=== PATIENT | male | born 1980 | race African-American/Black ===

== ENCOUNTER 2017-10-05 14:58 | Emergency (ER) | payer OTHER ==
--- NOTE | 2017-10-05 15:41 | RAD ---
RIGHT HAND 3 VIEWS: HISTORY: Laceration. Medical clearance. COMPARISON: None. FINDINGS: Old 5th metacarpal fracture. No acute fractures. Joint spaces are preserved. No radiopaque foreign body. IMPRESSION: No radiopaque foreign bodies. POS: [facility] [place]
[2017-10-05] MEDS ORDERED: Lidocaine 1% (PF) 30 ML VIAL ONE (15:55)
[2017-10-05] MEDS ORDERED: Triple Antibiotic Oint 1 GM Packet ONE (16:57)
== END 2017-10-05 17:08 | disposition home or self-care (01) ==
LOC: ERS 14:58
DX: S61.411A Laceration without foreign body of right hand, initial encounter (principal); I10 Essential (primary) hypertension; F17.210 Nicotine dependence, cigarettes, uncomplicated; W22.8XXA Striking against or struck by other objects, initial encounter
CPT/HCPCS: 12001; 99406; J2001

== ENCOUNTER 2018-02-19 17:12 | Emergency (ER) | payer SELFPAY ==
--- NOTE | 2018-02-19 18:19 | RAD ---
RIGHT KNEE FOUR VIEWS: 02/19/18 HISTORY: Injury, right knee pain. FINDINGS/IMPRESSION: No acute fracture or dislocation is seen. There is fullness in the suprapatellar pouch suspicious for joint effusion. POS: [facility]
== END 2018-02-19 19:30 | disposition home or self-care (01) ==
LOC: ERS 17:12
DX: S83.91XA Sprain of unspecified site of right knee, initial encounter (principal); I10 Essential (primary) hypertension; V49.49XA Driver injured in collision with other motor vehicles in traffic accident, initial encounter

== ENCOUNTER 2018-04-15 07:34 | Observation (INO) | payer SELFPAY ==
[2018-04-15 08:50] LABS: #Lymphocytes 0.5 thou/uL (1.20-3.40); #Monocytes 0.4 thou/uL (0.11-0.59); #Neutrophils 11.1 thou/uL (1.40-6.50); %Eosinophils 0.1 % (0.0-10.0); %Lymphocytes 4.4 % (21.0-51.0); %Monocytes 3.5 % (0.0-10.0); %Neutrophils 91.9 % (42.0-75.0); Hemoglobin 17.1 g/dL (14.0-18.0); Mean Corpuscular HGB CONC 33.8 g/dL (32.0-36.0); Mean Corpuscular Volume 91.7 fL (78.0-98.0); Platelet Count 197 thou/uL (130-400); RBC Distribution Width 11.3 % (11.5-14.5); Red Blood Cell (RBC) Count 5.51 mill/uL (4.70-6.10); White Blood Cell (WBC) Count 12.1 thou/uL (4.8-10.8)
[2018-04-15] MEDS ORDERED: Ondansetron PF 4 MG/2 ML Vial ONE (08:59)
[2018-04-15] MEDS ORDERED: cloNIDine 0.1 MG TAB ONE (08:59)
[2018-04-15] MEDS ORDERED: Ketorolac Tromethamine 30 MG/ML VIAL ONE (08:59)
[2018-04-15 09:09] LABS: ALT (SGPT) 31 U/L (8-55); AST (SGOT) 33 U/L (5-34); Albumin 4.6 g/dL (3.5-5.0); Alkaline Phosphatase 76 U/L (40-150); Anion Gap 14 mmol/L (10-20); BUN (Urea Nitrogen) 11 mg/dL (8.9-20.6); Bilirubin, Total 0.9 mg/dL (0.2-1.2); Calc. Creatinine Clearance 0 mL/min (70-130); Calcium 9.9 mg/dL (7.8-10.44); Carbon Dioxide 28 mmol/L (22-29); Chloride 99 mmol/L (98-107); Estimated GFR-MDRD 59; Globulin 3.9 g/dL (2.4-3.5); Glucose 105 mg/dL (70-105); Lipase 11 U/L (8-78); Potassium 3.9 mmol/L (3.5-5.1); Protein, Total 8.5 g/dL (6.0-8.3); Sodium 137 mmol/L (136-145)
[2018-04-15 09:19] LABS: Clarity TURBID (Clear)
[2018-04-15 09:21] LABS: Bacteria/HPF Rare-Few HPF (None Seen); Pathc Cast-AUWi Flag 1.75 (0-2.49)
[2018-04-15] MEDS ORDERED: Metoclopramide HCl 10 MG TAB ONE (09:29)
[2018-04-15 09:34] LABS: Leukocyte Unable to Interpret (Negative); Nitrite Unable to Interpret (Negative); Protein, Urine (Dipstick) Unable to Interpret mg/dL (Neg-Trace)
[2018-04-15 09:35] LABS: Bilirubin Unable to Interpret (Negative); Blood, Urine Unable to Interpret (Negative); Glucose, Urine (Dipstick) Unable to Interpret mg/dL (Negative); Urobilinogen UNABLE TO INTERPRET mg/dL (0.2-1.0)
[2018-04-15 09:44] LABS: Specific Gravity, Urine 1.037 (1.002-1.036); pH, Urine 6.1 (5.0-9.0)
[2018-04-15 09:45] LABS: RBC/HPF 0-3 HPF (0-3)
[2018-04-15 09:46] LABS: Hyaline Casts/LPF 0-3 HYALINE CAST LPF (0-3 Hyaline)
[2018-04-15] MEDS ORDERED: Acetaminophen 500 MG TAB ONE (09:47)
[2018-04-15] MEDS ORDERED: Ibuprofen 200 MG TAB ONE (09:47)
[2018-04-15] MEDS ORDERED: Nitroglycerin 0.4 MG TAB (25 Tab Bottle) ONE (09:47)
[2018-04-15] MEDS ORDERED: Nitroglycerin 2% Ointment 1 INCH/1 GM Packet ONE (09:47)
--- NOTE | 2018-04-15 09:58 | ULT ---
SCROTAL SONOGRAM WITH DUPLEX EVALUATION: History: Testicular pain and swelling. FINDINGS: Right testicle is 4.2 cm and left is 4.5 cm. Each has a normal sonographic appearance with good color and spectral doppler flow. A small amount of fluid within the right scrotum. IMPRESSION: Small right hydrocele. No direct evidence of testicular mass or torsion. POS: [facility]
[2018-04-15 10:32] LABS: Lactic Acid 1.7 mmol/L (0.5-2.2)
[2018-04-15] MEDS ORDERED: Azithromycin 250 MG TAB ONE (11:06)
[2018-04-15] MEDS ORDERED: Lidocaine 2% PF 5 ML VIAL ONE (11:06)
[2018-04-15] MEDS ORDERED: cefTRIAXone\\ROCEPHIN 250 MG VIAL ONE (11:06)
[2018-04-15] MEDS ORDERED: HYDROcodone/Acetaminophen 5/325 mg Tablet PO PRN (12:53)
[2018-04-15] MEDS ORDERED: Ondansetron ODT 4 MG TAB PO PRN (12:53)
[2018-04-15] MEDS ORDERED: Benzonatate 100 MG CAP PO PRN (13:00)
[2018-04-15] MEDS ORDERED: Nicotine 14 MG PATCH TD SCH (13:00)
--- NOTE | 2018-04-15 14:09 | RAD ---
TWO VIEWS CHEST: Comparison: None. History: Low back pain and chest congestion. Cough. FINDINGS: Two views of the chest show normal sized cardiomediastinal silhouette. There is no evidence of consol idation, mass, or pleural effusion. The bones are unremarkable. IMPRESSION: No evidence of acute cardiopulmonary disease. POS: [facility]
[2018-04-15 15:30] VITALS: BMI 34.2
[2018-04-15] MEDS: Sodium Chloride 0.9% 1,000 ML IV SCH (16:05)
--- NOTE | 2018-04-15 16:26 | ULT ---
BILATERAL RENAL ULTRASOUND 04/15/18 COMPARISON: None. HISTORY: Elevated creatinine. Renal failure. TECHNIQUE: Multiplanar blackwell scale and color doppler images were obtained in a renal ultrasound. FINDINGS: The kidneys are normal in echogenicity without hydronephrosis or calculi measuring 10.2 and 10.6 cm i n length on the right and left, respectively. Limited visualization of the urinary bladder is unremar kable. The prostate is enlarged. IMPRESSION: 1. Unremarkable renal ultrasound. 2. Enlarged prostate. POS: [facility]
[2018-04-15] MEDS: Acetaminophen 325 MG TAB PO PRN (19:50)
[2018-04-15] MEDS: Metoclopramide HCl 10 MG TAB PO SCH (19:51)
[2018-04-15] MEDS: Famotidine 20 MG TAB PO SCH (19:51)
[2018-04-15] MEDS ORDERED: Amlodipine 5 MG TAB PO SCH (21:00)
[2018-04-16] MEDS: hydrALAZINE 20 MG/ML VIAL SLOW IVP PRN ×2 (00:55→07:52)
[2018-04-16] MEDS: Acetaminophen 325 MG TAB PO PRN ×2 (00:56→07:52)
[2018-04-16] MEDS: Sodium Chloride 0.9% 1,000 ML IV SCH ×2 (00:56→06:31)
[2018-04-16 05:00] LABS: #Lymphocytes 1.2 thou/uL (1.20-3.40); #Monocytes 0.6 thou/uL (0.11-0.59); #Neutrophils 4.4 thou/uL (1.40-6.50); %Basophils 0.1 % (0.0-1.0); %Eosinophils 0.2 % (0.0-10.0); %Lymphocytes 19.5 % (21.0-51.0); %Monocytes 9.8 % (0.0-10.0); %Neutrophils 70.5 % (42.0-75.0); Hemoglobin 15.2 g/dL (14.0-18.0); Mean Corpuscular HGB CONC 35.2 g/dL (32.0-36.0); Mean Corpuscular Hemoglobin 32.1 pg (27.0-31.0); Mean Corpuscular Volume 91.2 fL (78.0-98.0); Mean Platelet Volume 8.6 fL (7.4-10.4); Platelet Count 145 thou/uL (130-400); RBC Distribution Width 11.3 % (11.5-14.5); Red Blood Cell (RBC) Count 4.74 mill/uL (4.70-6.10); White Blood Cell (WBC) Count 6.3 thou/uL (4.8-10.8)
[2018-04-16 05:17] LABS: ALT (SGPT) 44 U/L (8-55); AST (SGOT) 46 U/L (5-34); Albumin 3.5 g/dL (3.5-5.0); Alkaline Phosphatase 61 U/L (40-150); Anion Gap 10 mmol/L (10-20); BUN (Urea Nitrogen) 12 mg/dL (8.9-20.6); Bilirubin, Total 0.8 mg/dL (0.2-1.2); Calc. Creatinine Clearance 119 mL/min (70-130); Calcium 8.5 mg/dL (7.8-10.44); Carbon Dioxide 25 mmol/L (22-29); Chloride 106 mmol/L (98-107); Estimated GFR-MDRD 74; Globulin 3.1 g/dL (2.4-3.5); Glucose 92 mg/dL (70-105); Potassium 3.9 mmol/L (3.5-5.1); Protein, Total 6.6 g/dL (6.0-8.3); Sodium 137 mmol/L (136-145)
--- NOTE | 2018-04-16 06:43 | HP ---
PRIMARY CARE PHYSICIAN: None. REASON FOR ADMISSION: Hypertensive urgency HISTORY OF PRESENT ILLNESS & ROS: This is a 37-year-old man admitted with hypertensive urgency, BP in the ED ranging from 171-243/101-156. He initially presented complaining of fever, body aches and chills. Has been generally unwell for the last week with increased cough, now productive for green sputum (known smoker with a chronic cough. Reports continuous hiccups x 3 days. Immediately relived after given Reglan in ED. One episode of vomiting this morning as well as dysuria with orange colored urine. Denies any bleeding or discharge. Reported to have testicular pain on exam in ED, ultrasound done showed a right hydrocele, otherwise normal. Known history of hypertension in the past while in [facility], controlled with HCTZ. Once released he had no further follow-up. CONSTITUTIONAL: Reports chills and fever. EYES: Negative ENT: Hiccups, continuous for 3 days. CARDIOVASCULAR: Negative. No chest pain or palpitations. RESPIRATORY: No shortness of breath. Reports increased cough, +green sputum. GI: No nausea, vomiting or change in stools. : Reports dysuria this morning. No discharge or bleeding. MUSCULOSKELETAL: Generalized bodyaches SKIN: Negative NEUROLOGIC: Negative ENDOCRINE: Negative. HEMO/LYMPHATIC: Normal PSYCHIATRIC: Negative, Normal affect, AOx3 PAST MEDICAL HISTORY: Hypertension, treated previously while he was in [facility] with hydrochlorothiazide. Dose unknown. PAST SURGICAL HISTORY: None. SOCIAL HISTORY: Lives at home with partner and 6-month-old child. Denies any illicit drug use. Alcohol, on occasion. FAMILY HISTORY: His mother has a history of CAD. ALLERGIES: NO KNOWN DRUG ALLERGIES. CURRENT MEDICATIONS: None. PHYSICAL EXAMINATION: VITAL SIGNS: BP 182/75, HR 55, RR 19, O2 sat 97% RA HEENT: Normocephalic and atraumatic. Pupils equal, round, and reactive to light. Sclerae are anicteric. Ears unremarkable. Oropharynx is clear. No exudate or thrush. NECK: Supple without any lymphadenopathy. CHEST: No apparent respiratory distress. Chest movement symmetrical with equal expansion. Clear bilaterally. No wheezes or rales. CARDIOVASCULAR: Regular rate and rhythm. No audible murmurs. EXTREMITIES: Able to move all limbs. No lower limb edema or swelling. No calf tenderness. NEURO: The patient is alert and oriented x3. Speech normal. PSYCHIATRIC: Normal affect. Answering questions appropriately. LABORATORIES AND IMAGIN. White blood count 12.1, hemoglobin 17.1, hematocrit 50.5, and platelets 197. Sodium 137, potassium 3.9, chloride 99, carbon dioxide 28, creatinine 1.62, eGFR 59, glucose 105. LFTs within normal limits. Serum total protein 8.5 and albumin 3.9. 2. UA: color orange, clear, cloudy, turbid, pH is 6.1, specific gravity of 1.037. Greater than 50 white blood cells, wbc's 0 to 3, few to rare bacteria, 0 to 3 hyaline casts present. 3. Chest x-ray, appears unremarkable, final report pending. 4. Testicular ultrasound done, 04/15/2018, notable for small right hydrocele. No direct evidence of testicular mass or torsion. ASSESSMENT AND PLAN: 1. Hypertensive urgency. Continue to monitor BP. The patient admitted to telemetry for further monitoring of his blood pressure. We will start amlodipine 5 mg p.o. daily. 2. Elevated creatinine. IV hydration. Reviewed by Dr. Mathews of Urology. Awaiting bilateral renal ultrasound report. 4. Fever. Presumed STI due to testicular pain/dysuria. Given Rocephin and azithromycin in ED. Awaiting STI screening. 5. Cough. Chest x-ray completed, awaiting report. Reviewed by Dr. Wright who agrees appears unremarkable. Tesitzel Fofana prescribed to help with cough. Patient seen by Dr. Wright who feels patient appears well. Has advised no further antibiotics indicated. Patient likely to be discharged 04/16/2018. Job ID: [id number] [facility]
[2018-04-16] MEDS: Famotidine 20 MG TAB PO SCH (07:52)
[2018-04-16] MEDS: Metoclopramide HCl 10 MG TAB PO SCH (07:52)
[2018-04-16] MEDS ORDERED: Amlodipine 5 MG TAB PO SCH (09:00)
[2018-04-16] MEDS ORDERED: cefTRIAXone\\ROCEPHIN 2 GM in Sodium Chloride 0.9% 100 ML IVPB SCH (09:00)
[2018-04-16 09:37] VITALS: BP 169/109; TEMP 98.9
[2018-04-16] MEDS ORDERED: Azithromycin 500 MG in Sodium Chloride 0.9% 250 ML 250 ML IVPB SCH (10:00)
--- NOTE | 2018-04-17 08:57 | DIS ---
DATE OF ADMISSION: 04/15/2018 DATE OF DISCHARGE: 04/16/2018 PRIMARY CARE PHYSICIAN: To be established. CONSULTING PHYSICIAN: Dr. Mathews of Urology. DISCHARGE DIAGNOSIS: 1. Hypertensive urgency 2. Elevated creatinine 3. Fever. 4. Hiccups. PROCEDURES: 1. Testicular ultrasound, 04/15/2018. Impression; small right hydrocele. No direct evidence of a testicular mass or torsion. 2. Chest x-ray, 04/15/2018. Impression; no evidence of acute cardiopulmonary disease. 3. Renal ultrasound, 04/15/2018. Impression; unremarkable renal ultrasound. Enlarged prostate noted. 4. 12-lead EKG done on 04/15/2018. Impression; normal sinus rhythm with a heart rate of 91. No ectopics, QTc 415. 5. Laboratory studies; white blood count 12.1 on 04/15/2018, improved to 6.2 on 04/16/2018. Creatinine initially 1.62, improved to 1.33 on 04/16/2018. Otherwise, laboratory studies unremarkable. 6. UA done on 04/15/2018. [place] in color with turbid appearance. 7. Urine culture. No growth at 24 hours per preliminary report. HOSPITAL COURSE: Mr. Jones was admitted on 04/15/2018 with hypertensive urgency. He had a blood pressure of 200/108 upon initial presentation to the ED with fever, chills and body aches. Aches attributed to continuous hiccups. Hiccups resolved immediately with Reglan given in ED and again during his stay. Given hydralazine in ED with some improvement in his BP noted. Labs on admission notable for elevated creatinine. He reports darkening of his urine early hours this morning. Due to dysuria and possible discharge on exam in the ED he was treated for STI. Given Azithromycin and Rocephin, also STI testing done. No further fevers during his stay. Reports feeling significantly better. Eating/drinking without difficulties. Darkened urine has resolved following IV hydration, with creatinine down to 1.33 from 1.62. No dysuria. During his hospital stay, his blood pressures ranged between 206 and 209 systolic over 119 and 122 diastolic. Notable slight improvement with Norvasc 5 mg PO daily. He remained asymptomatic without any complaints of headaches, dizziness or visual disturbances. Known to have hypertension in the past with previous blood pressure readings in this range. He was treated previously while in group home with hydrochlorothiazide; however, upon release, he ceased any treatment and had no further followup. At present he is without complaints and eager for discharge home today with plans to establish care with a primary care physician. He is also agreeable to continue antihypertensives. Norvasc increased to 5 mg b.i.d. starting today. At time of discharge, blood pressure is 169/109. Hiccups resumed but quickly responded to Reglan, therefore requesting for Rx to continue at home. ROS: CONSTITUTIONAL: No fevers, chills or sweats. HEENT: No headaches or dizziness. No vision changes. No rhinorrhea. No sore throat. Denies any neck pain. CARDIAC: No chest pain or palpitations. LUNGS: No sob, no wheezing. ABDOMEN: No abdominal pain. No n/v or bowel changes. MUSCULOSKELETAL: Unremarkable. PHYSICAL EXAM: VITAL SIGNS: T 98.9, HR 95, RR 16, BP 169/109, O2 sat 99% on RA HEENT: Normocephalic and atraumatic. PERRLA. Sclerae anicteric. Oropharynx clear. Neck supple without lymphadenopathy CARDIAC: RRR, no audible murmurs LUNGS: Clear bilaterally, no wheezes or ronchi. ABDOMEN: Soft, nontender, nondistended. Normal bowel sounds. EXTREMITIES: No clubbing, cyanosis or oedema. No lower leg pain or swelling. NEUROLOGIC: Alert and oriented x 3. Normal affect. ALLERGIES: NO KNOWN DRUG ALLERGIES. HOME MEDICATIONS: 1. New prescription given for Norvasc 5 mg p.o. b.i.d. 2. New prescription given for Reglan 10 mg before meals and at bedtime. (for hiccups) CONDITION AT TIME OF DISCHARGE: Stable. ACTIVITY: As tolerated. DIET: Heart healthy diet recommended. DISPOSITION: Discharged to home today. FOLLOWUP: Advised to establish care with a primary care physician within 1 to 2 weeks, which he is agreeable to. He will return if any new concerning or worsening symptoms as discussed. The patient's case was discussed with Dr. Wright who is in agreement with plan as described above. The patient is also happy with plans for discharge and treatment as describe above. Job ID: [id number] [facility]
--- NOTE | 2018-04-18 13:47 | EKG ---
Test Reason : Blood Pressure : / mmHG Vent. Rate : 091 BPM Atrial Rate : 091 BPM P-R Int : 192 ms QRS Dur : 090 ms QT Int : 338 ms P-R-T Axes : 061 023 012 degrees QTc Int : 415 ms Normal sinus rhythm Possible Left atrial enlargement Septal infarct , age undetermined Abnormal ECG Confirmed by YAA VALE DO ([id number]), rewrite editor DARNELL PÉREZ ([id number]) on 04/18/2018 1:47:32 PM Referred By: Confirmed By:YAA VALE DO
[2018-04-19 05:31] LABS: Chlamydia by PCR Inconclusive (NotDetected); GC by PCR Inconclusive (NotDetected)
== END 2018-04-16 10:50 | disposition home or self-care (01) ==
LOC: ERS 07:34 → 2SW 14:39
PROVIDERS: ADMIT Family Medicine; ATTEND Family Medicine
DX: I16.0 Hypertensive urgency (principal); R50.9 Fever, unspecified; R06.6 Hiccough; R79.89 Other specified abnormal findings of blood chemistry; N43.3 Hydrocele, unspecified; N40.0 Benign prostatic hyperplasia without lower urinary tract symptoms; Z79.899 Other long term (current) drug therapy
CPT/HCPCS: 36415; 71046; 76770; 76870; 80053; 81003; 81015; 83605; 83690; 85025; 87040; 87086; 87491; 87591; 90471; 90686; 93005; 93976; 96361; 96372; 96374; 96376; G0008; G0378; J0360; J0696; J1885; J2001; J2405

== ENCOUNTER 2020-04-15 06:04 | Emergency (ER) | payer SELFPAY ==
[2020-04-15] MEDS ORDERED: Ibuprofen 200 MG TAB ONE (06:44)
[2020-04-15 12:22] LABS: SARS-CoV-2 MS2 Positive; SARS-CoV-2 N Gene Negative; SARS-CoV-2 S Gene Negative; SARS-CoV-2 by NAA Not Detected (NotDetected); SARS-CoV-2 orf1ab Negative
== END 2020-04-15 07:15 | disposition home or self-care (01) ==
LOC: ERS 06:04
DX: R50.9 Fever, unspecified (principal); M79.10 Myalgia, unspecified site; I10 Essential (primary) hypertension; Z20.828 Contact with and (suspected) exposure to other viral communicable diseases
CPT/HCPCS: 87635; 99283; U0003

== ENCOUNTER 2023-09-29 22:09 | Emergency (ER) | payer SELFPAY ==
[2023-09-29 22:58] LABS: Bacteria/HPF None Seen HPF (None Seen); Bilirubin Negative (Negative); Blood, Urine Negative (Negative); CAUTI Indications for Culture Dysuria,urgency,freq; Clarity Clear (Clear); Glucose, Urine (Dipstick) Normal (Negative); Ketone, Urine Negative (Negative); Leukocyte 75 Leu/uL (Negative); Nitrite Negative (Negative); Protein, Urine (Dipstick) 10 mg/dL (Neg-Trace); RBC/HPF 0-3 HPF (0-3); Specific Gravity, Urine 1.029 (1.002-1.036); Squamous Epithelial 0-3 HPF (0-3)
[2023-09-29 22:59] LABS: Urine Culture Reflex Yes Yes
[2023-09-30] MEDS ORDERED: Lidocaine 1% PF 5 ML VIAL ONE (00:52)
[2023-09-30] MEDS ORDERED: Azithromycin 250 MG TAB ONE (00:52)
[2023-09-30] MEDS ORDERED: cefTRIAXone (ROCEPHIN) 500 MG VIAL ONE (00:52)
[2023-09-30 13:43] LABS: Chlam.trachomatis by PCR,Urine DETECTED (NotDetected); GC N.gonorrhoeae PCR,UrineVOID Not Detected (NotDetected)
== END 2023-09-30 01:36 | disposition home or self-care (01) ==
LOC: ERS 22:09
DX: A64 Unspecified sexually transmitted disease (principal); I10 Essential (primary) hypertension; F17.210 Nicotine dependence, cigarettes, uncomplicated
CPT/HCPCS: 81001; 87086; 87491; 87591; 96372; 99283; J0696